=== PATIENT | male | born 1940 | race Caucasian/White ===

== ENCOUNTER → 2018-10-16 07:41 | Outpatient (CLI) | payer MEDICARE, SELFPAY ==
[2018-10-16 08:41] LABS: Add Manual Diff / Slide Review NO; Basophils Absolute Auto 0 /uL (0-100); Basophils Percent Auto 0.7 % (0-2); Eosinophils Absolute Auto 100 /uL (0-450); Eosinophils Percent Auto 2.3 % (2-4); Lymphocytes Absolute Auto 1000 /uL (1100-4500); Lymphocytes Percent Auto 16.2 % (25-40); Mean Corpuscular HGB Conc 33.3 % (30-36); Mean Corpuscular Hemoglobin 31.8 PG (26-34); Mean Corpuscular Volume 95.3 fL (80-100); Monocytes Absolute Auto 600 /uL (0-900); Monocytes Percent Auto 9.9 % (3-14); Neutrophils Absolute Auto 4200 /uL (1500-7000); Neutrophils Percent Auto 70.9 % (50-75); Platelet Count 264 X10^3/uL (150-400); Red Blood Cell Count 4.41 X10^6/uL (4.5-5.9); Red Cell Distribution Width 13.4 % (11.6-14.8); White Blood Cell Count 5.9 X10^3/uL (4.5-11.0)
[2018-10-16 09:01] LABS: Alanine Aminotransferase 18 IU/L (21-72); Albumin 3.9 g/dL (3.5-5.0); Albumin Globulin Ratio 1.2 (1.0-2.8); Alkaline Phosphatase 87 U/L (38-126); Aspartate Aminotransferase 29 IU/L (17-59); BUN Creatinine Ratio 32.5 (6-22); Bilirubin Total 0.7 mg/dL (0.2-1.3); Blood Urea Nitrogen 26 mg/dL (9-20); Calcium 9.2 mg/dL (8.4-10.2); Carbon Dioxide 29 mmol/L (22-32); Chloride 105 mmol/L (98-107); Cholesterol 112 mg/dL (140-199); Estimated Glomerular Filt Rate > 60.0 mL/min (>60); Globulin 3.3 g/dL (1.7-4.1); Glucose 133 mg/dL (80-110); HDL Cholesterol 31 mg/dL (40-60); HEMOLYSIS 32 (0-50); LDL Cholesterol Calculated 58 mg/dL (<100); Potassium 4.8 mmol/L (3.4-5.1); Sodium 143 mmol/L (137-145); Total Protein 7.2 g/dL (6.3-8.2); Triglycerides 117 mg/dL (35-150)
== END ==
PROVIDERS: Family Provider Internal Medicine Cardiovascular Disease; PCP Internal Medicine; Visit Provider Internal Medicine
DX: E78.2 Mixed hyperlipidemia (principal); I10 Essential (primary) hypertension; I25.10 Atherosclerotic heart disease of native coronary artery without angina pectoris; I48.2 Chronic atrial fibrillation; Z79.01 Long term (current) use of anticoagulants
CPT/HCPCS: 36415; 80053; 80061; 84443; 85025

== ENCOUNTER → 2019-06-09 07:54 | Outpatient (CLI) | payer MEDICARE, SELFPAY ==
[2019-06-09 11:15] LABS: Alanine Aminotransferase 23 IU/L (<50); Albumin Globulin Ratio 1.3 (1.0-2.8); Alkaline Phosphatase 94 U/L (38-126); Aspartate Aminotransferase 27 IU/L (17-59); BUN Creatinine Ratio 27.5 (6-22); Bilirubin Total 0.8 mg/dL (0.2-1.3); Blood Urea Nitrogen 22 mg/dL (9-20); Calcium 9.3 mg/dL (8.4-10.2); Carbon Dioxide 27 mmol/L (22-32); Chloride 104 mmol/L (98-107); Cholesterol 105 mg/dL (140-199); Estimated Glomerular Filt Rate > 60.0 mL/min (>60); Globulin 3.1 g/dL (1.7-4.1); Glucose 123 mg/dL (80-110); HDL Cholesterol 30 mg/dL (40-60); HEMOLYSIS < 15 (0-50); LDL Cholesterol Calculated 61 mg/dL (<100); Potassium 4.8 mmol/L (3.4-5.1); Sodium 139 mmol/L (137-145); Total Protein 7.1 g/dL (6.3-8.2); Triglycerides 72 mg/dL (35-150)
[2019-06-11 05:57] LABS: Add Manual Diff / Slide Review NO; Basophils Absolute Auto 0 /uL (0-100); Basophils Percent Auto 0.5 % (0-2); Eosinophils Absolute Auto 200 /uL (0-450); Eosinophils Percent Auto 3.1 % (2-4); Hematocrit 42.4 % (41-53); Hemoglobin 14.1 g/dL (13.5-17.5); Lymphocytes Absolute Auto 900 /uL (1100-4500); Lymphocytes Percent Auto 12.1 % (25-40); Mean Corpuscular HGB Conc 33.2 % (30-36); Mean Corpuscular Hemoglobin 32.3 PG (26-34); Mean Corpuscular Volume 97.1 fL (80-100); Monocytes Absolute Auto 600 /uL (0-900); Monocytes Percent Auto 8.1 % (3-14); Neutrophils Absolute Auto 5500 /uL (1500-7000); Neutrophils Percent Auto 76.2 % (50-75); Platelet Count 274 X10^3/uL (150-400); Red Blood Cell Count 4.37 X10^6/uL (4.5-5.9); Red Cell Distribution Width 13.6 % (11.6-14.8); White Blood Cell Count 7.2 X10^3/uL (4.5-11.0)
== END ==
PROVIDERS: Family Provider Internal Medicine Cardiovascular Disease; PCP Internal Medicine; Referring Provider Internal Medicine; Visit Provider Internal Medicine
DX: E78.2 Mixed hyperlipidemia (principal); I10 Essential (primary) hypertension; I48.20 Chronic atrial fibrillation, unspecified; Z79.01 Long term (current) use of anticoagulants
CPT/HCPCS: 36415; 80053; 80061; 85025

== ENCOUNTER → 2020-01-24 08:31 | Outpatient (CLI) | payer MEDICARE, SELFPAY ==
[2020-01-25 12:02] LABS: COVID19 Sendout Not Detected (Not Detected)
== END ==
PROVIDERS: Family Provider Internal Medicine Cardiovascular Disease; PCP Internal Medicine; Visit Provider Physician Assistant
DX: Z11.59 Encounter for screening for other viral diseases (principal)
CPT/HCPCS: 87635

== ENCOUNTER → 2020-10-08 08:29 | Outpatient (CLI) | payer MEDICARE, SELFPAY ==
[2020-10-08 09:37] LABS: Add Manual Diff / Slide Review NO; Basophils Absolute Auto 0 /uL (0-100); Basophils Percent Auto 0.6 % (0-2); Eosinophils Absolute Auto 100 /uL (0-450); Eosinophils Percent Auto 2.4 % (2-4); Hematocrit 38.8 % (41-53); Lymphocytes Absolute Auto 800 /uL (1100-4500); Lymphocytes Percent Auto 14.3 % (25-40); Mean Corpuscular HGB Conc 33.6 % (30-36); Mean Corpuscular Hemoglobin 31.9 PG (26-34); Mean Corpuscular Volume 94.9 fL (80-100); Monocytes Absolute Auto 500 /uL (0-900); Monocytes Percent Auto 9.1 % (3-14); Neutrophils Absolute Auto 4300 /uL (1500-7000); Neutrophils Percent Auto 73.6 % (50-75); Platelet Count 257 X10^3/uL (150-400); Red Blood Cell Count 4.09 X10^6/uL (4.5-5.9); Red Cell Distribution Width 14.1 % (11.6-14.8); White Blood Cell Count 5.9 X10^3/uL (4.5-11.0)
[2020-10-08 10:27] LABS: Alanine Aminotransferase 28 IU/L (<50); Albumin 3.8 g/dL (3.5-5.0); Albumin Globulin Ratio 1.2 (1.0-2.8); Alkaline Phosphatase 83 U/L (38-126); Aspartate Aminotransferase 36 IU/L (17-59); BUN Creatinine Ratio 27.1 (6-22); Bilirubin Total 0.7 mg/dL (0.2-1.3); Blood Urea Nitrogen 19 mg/dL (9-20); Calcium 9.2 mg/dL (8.4-10.2); Carbon Dioxide 28 mmol/L (22-32); Chloride 106 mmol/L (98-107); Cholesterol 98 mg/dL (140-199); Estimated Glomerular Filt Rate > 60.0 mL/min (>60); Globulin 3.1 g/dL (1.7-4.1); Glucose 110 mg/dL (80-110); HDL Cholesterol 33 mg/dL (40-60); HEMOLYSIS < 15 (0-50); LDL Cholesterol Calculated 55 mg/dL (<100); Potassium 4.4 mmol/L (3.4-5.1); Sodium 139 mmol/L (137-145); Total Protein 6.9 g/dL (6.3-8.2); Triglycerides 52 mg/dL (35-150)
== END ==
PROVIDERS: Family Provider Internal Medicine Cardiovascular Disease; PCP Internal Medicine; Referring Provider Internal Medicine; Visit Provider Internal Medicine
DX: E78.2 Mixed hyperlipidemia (principal); I10 Essential (primary) hypertension; I25.10 Atherosclerotic heart disease of native coronary artery without angina pectoris; I48.20 Chronic atrial fibrillation, unspecified; Z79.01 Long term (current) use of anticoagulants
CPT/HCPCS: 80053; 80061; 85025

== ENCOUNTER → 2021-01-14 11:40 | Outpatient (CLI) | payer MEDICARE, SELFPAY ==
[2021-01-14 13:07] LABS: COVID19 -Nasal RAPID Negative (Negative)
== END ==
PROVIDERS: Family Provider Internal Medicine Cardiovascular Disease; PCP Internal Medicine; Visit Provider Nurse Practitioner
DX: Z20.822 Contact with and (suspected) exposure to COVID-19 (principal); Z01.812 Encounter for preprocedural laboratory examination
CPT/HCPCS: 87635; C9803

== ENCOUNTER → 2021-12-29 11:04 | Outpatient (CLI) | payer MEDICARE, SELFPAY ==
[2021-12-29 12:26] LABS: Add Manual Diff / Slide Review NO; Basophils Absolute Auto 0 /uL (0-100); Basophils Percent Auto 0.8 % (0-2); Eosinophils Absolute Auto 100 /uL (0-450); Eosinophils Percent Auto 1.7 % (2-4); Hemoglobin 14.1 g/dL (13.5-17.5); Lymphocytes Absolute Auto 700 /uL (1100-4500); Lymphocytes Percent Auto 13.6 % (25-40); Mean Corpuscular HGB Conc 34.5 % (30-36); Mean Corpuscular Hemoglobin 32.9 PG (26-34); Mean Corpuscular Volume 95.3 fL (80-100); Monocytes Absolute Auto 600 /uL (0-900); Monocytes Percent Auto 10.9 % (3-14); Neutrophils Absolute Auto 3700 /uL (1500-7000); Platelet Count 281 X10^3/uL (150-400); Red Cell Distribution Width 13.2 % (11.6-14.8)
[2021-12-29 12:54] LABS: Alanine Aminotransferase 22 IU/L (<50); Albumin 4.1 g/dL (3.5-5.0); Albumin Globulin Ratio 1.3 (1.0-2.8); Alkaline Phosphatase 97 U/L (38-126); Aspartate Aminotransferase 25 IU/L (17-59); BUN Creatinine Ratio 25.6 (6-22); Bilirubin Total 1.2 mg/dL (0.2-1.3); Blood Urea Nitrogen 20 mg/dL (9-20); Calcium 9.2 mg/dL (8.4-10.2); Carbon Dioxide 30 mmol/L (22-32); Chloride 103 mmol/L (98-107); Cholesterol 107 mg/dL (140-199); Estimated Glomerular Filt Rate > 60 mL/min (>60); Globulin 3.2 g/dL (1.7-4.1); Glucose 107 mg/dL (80-110); HDL Cholesterol 38 mg/dL (40-60); HEMOLYSIS < 15 (0-50); LDL Cholesterol Calculated 61 mg/dL (<100); Potassium 5.2 mmol/L (3.4-5.1); Sodium 141 mmol/L (137-145); Total Protein 7.3 g/dL (6.3-8.2); Triglycerides 42 mg/dL (35-150)
== END ==
PROVIDERS: Family Provider Internal Medicine Cardiovascular Disease; PCP Internal Medicine; Referring Provider Internal Medicine; Visit Provider Internal Medicine
DX: I10 Essential (primary) hypertension (principal); E78.2 Mixed hyperlipidemia; I25.10 Atherosclerotic heart disease of native coronary artery without angina pectoris; I48.20 Chronic atrial fibrillation, unspecified; Z79.01 Long term (current) use of anticoagulants; Z79.899 Other long term (current) drug therapy
CPT/HCPCS: 36415; 80053; 80061; 85025

== ENCOUNTER → 2022-09-06 10:13 | Outpatient (CLI) | payer MEDICARE, SELFPAY ==
--- NOTE | 2022-09-06 | DI.CT.S_ITS ---
PROCEDURE: CT SINUS SCREEN WO CON INDICATIONS: Chronic pansinusitis TECHNIQUE: Noncontrast 3.0 mm axial images acquired from the frontal sinuses to the mid-sella, with coronal and sagittal reformats. For radiation dose reduction, the following was used: automated exposure control, adjustment of mA and/or kV according to patient size. COMPARISON: None. FINDINGS: Image quality: Excellent. Maxillary Sinuses: No bony remodeling or destruction. Sinuses are clear. Ethmoid Air Cells: No bony remodeling or destruction. Sinuses are clear. Sphenoid Sinuses: No bony remodeling or destruction. Sinuses are clear. Frontal Sinuses: No bony remodeling or destruction. Sinuses are clear. Ostiomeatal Complexes: Ostiomeatal complexes are patent. 9 mm left and 13 mm right Bianca cells. Miscellaneous: Visualized intra-orbital contents are normal. No jomar bullosa or paradoxical turbinate curvature. No nasal septal deviation. IMPRESSION: 1. Bilateral Bianca cells. 2. No significant sinus disease. Dictated by: Stanislaw Vasquez M.D. on 09/06/2022 at 13:40 Approved by: Stanislaw Vasquez M.D. on 09/06/2022 at 13:41
== END ==
PROVIDERS: Family Provider Internal Medicine Cardiovascular Disease; PCP Internal Medicine; Referring Provider Otolaryngology; Visit Provider Otolaryngology
DX: J32.4 Chronic pansinusitis (principal); R09.82 Postnasal drip
CPT/HCPCS: 70486

== ENCOUNTER → 2022-09-07 14:14 | Outpatient (CLI) | payer MEDICARE, SELFPAY ==
--- NOTE | 2022-09-07 14:16 | DI.RAD.S_ITS ---
PROCEDURE: FL BARIUM SWALLOW W SPEECH INDICATIONS: Chronic cough COMPARISON: None. TECHNIQUE: Examination was conducted in conjunction with speech pathology per standard protocol. In the lateral projection, filming was performed of the patient swallowing. AP projection filming may also be performed with patient swallowing. COMPARISON: FINDINGS: Function: The oral preparatory phase appears normal, with proper containment. The subsequent oral propulsive phase, pharyngeal phase, and esophageal phase of swallowing also appear normal with all proffered substances. A few episodes mild laryngotracheal penetration without aspiration. No pathologic vallecular pooling. Morphology: No cricopharyngeal bar is identified. No cervical esophageal webs. No Zenker's diverticulum. No strictures. IMPRESSION: A few episodes of mild laryngotracheal penetration without aspiration. Otherwise, no remarkable modified barium swallow. Please see separate report by the speech pathologist for further details. Dictated by: Andrew South M.D. on 09/07/2022 at 21:20 Approved by: Andrew South M.D. on 09/07/2022 at 21:23
--- NOTE | 2022-09-08 17:30 | ST.SWALLOW ---
Visit Care Team Role Provider Type Jim Ness MD Primary Care Provider Physician Specialty: Internal Medicine Address: [address] [place] [address], [address], [place], [address] Email: [email or web address] Ethan Mays MD Family Provider Physician Specialty: Cardiology Address: [address], [address], [place], [address] Email: [email or web address] Andrew Case MD Attending Provider Physician Referring Provider Specialty: Ear, Nose, Throat Address: [address] [place] [address], [id number] Email: [email or web address] Modified Barium Swallow Study CHIEF WRITER Modified Barium Swallow Study Start: 09/07/22 16:55 Freq: Status: Active Protocol: Document 09/07/22 16:56 LNK (Rec: 09/07/22 17:13 LNK [id number]) Modified Barium Swallow Study Total Time Visit Start Time 14:30 Visit Stop Time 15:00 Total Visit Minutes [address] Case Reason for Referral persistent cough/throat clearing Setting Setting Outpatient Care Patient Information Identification Type Name,Date of Patient History The pt was seen for a modified Barium Swallow Study secondary to reported persistent throat clearing and cough. Pt reports he has sinusitis and has a lot of drainage that builds up in his throat causing him to clear his throat/cough. Pt denied difficulty with swallowing foods or liquids when eating. Subjective Observations Pt is a pleasant appearing man who was seated in the fluoroscopy chair with directions and procedures described for him. He agreed to proceed. Patient Positioning Position View Lat-A/P Imaging Lateral View Textures Administered Trials Presented Thin Liquid via Spoon (IDDSI 0 ),Thin Liquid via Cup (IDDSI 0 ),Puree (IDDSI 4),Regular ( IDDSI 7) Barium Tablet Yes The IDDSI Framework Protocol: IDDSI.1 Oral Impairment Source: The Modified Barium Swallow Impairment Profile (MBSImP??) Lip Closure No labial escape Tongue Control During Bolus Hold Cohesive bolus between tongue to palatal seal Bolus Preparation/Mastication Timely & efficient chewing & mashing Bolus Transport/Lingual Motion Brisk tongue motion Oral Residue Trace residue lining oral structures Location Tongue Initiation of Pharyngeal Swallow Bolus head at posterior laryngeal surface of epiglottis Additional Oral Impairment Observations OME and DKS indicated structures WFL. Missing teeth, but this did not appear to interfere with mastication into smooth bolus. Pt demonstrated WNL oral phase of swallowing with trace residue along the body of his tongue. Pharyngeal Impairment Source: The Modified Barium Swallow Impairment Profile (MBSImP??) Soft Palate Elevation No bolus between soft palate & pharyngeal wall Laryngeal Elevation Part.sup.move.thyroid cart/ part.approx.arytenoids to epiglot.petiole Anterior Hyoid Excursion Partial anterior movement Epiglottic Movement Partial inversion Laryngeal Vestibular Closure Incomplete; narrow column air/ contrast in laryngeal vestibule Pharyngeal Stripping Wave Present - diminished Pharyngoesophageal Segment Opening Partial distention/partial duration; partial obstruction of flow Tongue Base Retraction Narrow column of contrast/air betwn tongue base & post. pharyngeal wall Pharyngeal Residue Collection of residue within/ on pharyngeal structures Location Diffuse (>3 areas) Additional Pharyngeal Impairment Base of tongue weakness was Observations observed to negatively hyolaryngeal elevation and movement and epiglottic inversion. There was weakness noted in the closure/seal of the laryngeal vestibule. Supra and sub epiglottic pooling of residue was observed across trials. resulting in laryngeal penetration x4 and aspiration of pooled secretions from the subepiglottic space as well as the pyriforms with subsequent swallows (Penetration Aspiration Scale 7 - below folds, visible trachea residue despite effort). Adriana aspiration of secretions observed x3. The PAS is a 1-8 scale of severity od penetration/aspiration during swallowing. Pt did not demonstrate spontaneous, reflexive cough. Cues to cough/clear throat were minimally affective. A/P View The IDDSI Framework Protocol: IDDSI.1 A/P View Observations Esophageal Clearance Upright Position Complete clearance; esophageal coating Esophageal Function WFL Additional A-P Observations Barium tablet was swallowed and passed through the esophagus in a timely manner Clinical Impressions Dysphagia Type Pharyngeal Findings Pt presented with mild pharyngeal dysphagia characterized by laryngeal penetration with aspiration. Spontaneous cough throat clear was not observed. Pt appeared to be able to swallow most of each bolus, however, there was diffuse residue within the pharyngeal cavities that, mixed with secretions, was noted to penetrate the laryngeal vestibule with adriana aspiration x3. pt reports frequent throat clearing throughout the day. pt attributed this to sinus drainage, which may be contributory. However, weakness of the pharyngeal musculature relative to swallow efficiency and safety appear to be a significant factor as well. Swallowing therapy is recommended to increase linguapharyngeal muscles. Rehabilitation Potential Excellent Patient Appropriate for Therapy Yes Recommendations Diet Liquids Order Thin (IDDSI 0) Diet Order Regular (IDDSI 7) Medication Recommendation As Tolerated Aspiration Precautions Recommended Precautions Upright at 90 Degrees, Alternate Liquids/Solids,Small Bites/Sips,Double Swallow Additional Precautions Avoid sequential swallows without stopping. Recommend one swallow at a time Treatment Plan Therapy Recommendations Outpatient Speech Therapy Therapy Strategy Recommendations Sitting Upright (90 deg), Liquids from Cup,Small Bites and Sips Short Term Goals Pt will review the findings of the MBSS with the CHIEF WRITER Pt will be provided with education and written exercises to increase linguapharyngeal muscle strength Nonprofit Director Goals Pt will safely tolerate the least restrictive diet without s/sx aspiration
--- NOTE | 2022-09-08 17:31 | ST.OPPOC ---
Physical, Occupational & Speech Therapy At [facility] Visit Care Team Role Provider Type Jim Ness MD Primary Care Provider Physician Address: [address], [address], [place], [address] Ethan Mays MD Family Provider Physician Address: [address], [address], [place], [address] Andrew Case MD Attending Provider Physician Referring Provider Address: [address] [facility] [place], [address] Speech Pathology Plan of Care Referring Provider Dr. Case Patient History The pt was seen for a modified Barium Swallow Study secondary to reported persistent throat clearing and cough. Pt reports he has sinusitis and has a lot of drainage that builds up in his throat causing him to clear his throat/cough. Pt denied difficulty with swallowing foods or liquids when eating. Mod Barium Swallow Oral Phase OME and DKS indicated structures WFL. Missing Other Observations teeth, but this did not appear to interfere with mastication into smooth bolus. Pt demonstrated WNL oral phase of swallowing with trace residue along the body of his tongue. Mod Barium Swallow Lateral Base of tongue weakness was observed to View Pharyngeal Other negatively hyolaryngeal elevation and movement Observation and epiglottic inversion. There was weakness noted in the closure/seal of the laryngeal vestibule. Supra and sub epiglottic pooling of residue was observed across trials. resulting in laryngeal penetration x4 and aspiration of pooled secretions from the subepiglottic space as well as the pyriforms with subsequent swallows (Penetration Aspiration Scale 7 - below folds, visible trachea residue despite effort). Adriana aspiration of secretions observed x3. The PAS is a 1-8 scale of severity od penetration/ aspiration during swallowing. Pt did not demonstrate spontaneous, reflexive cough. Cues to cough/clear throat were minimally affective. Mod Barium Swallow A/P View Barium tablet was swallowed and passed through Additional Observations the esophagus in a timely manner MBS Comments Pt presented with mild pharyngeal dysphagia characterized by laryngeal penetration with aspiration. Spontaneous cough throat clear was not observed. Pt appeared to be able to swallow most of each bolus, however, there was diffuse residue within the pharyngeal cavities that, mixed with secretions, was noted to penetrate the laryngeal vestibule with adriana aspiration x3. pt reports frequent throat clearing throughout the day. pt attributed this to sinus drainage, which may be contributory. However, weakness of the pharyngeal musculature relative to swallow efficiency and safety appear to be a significant factor as well. Swallowing therapy is recommended to increase linguapharyngeal muscles. Additional Precautions Avoid sequential swallows without stopping. Recommend one swallow at a time Short Term Goals Pt will review the findings of the MBSS with the SALES PLANNING MANAGER Pt will be provided with education and written exercises to increase linguapharyngeal muscle strength Comment: Electronically Signed by: JANES Cho 09/08/22 2709 If you are in agreement with this Plan of Care, please return a signed and dated copy. I have reviewed this Plan of Care and certify that the skilled therapy services above are required to meet the patient?s needs. Physician Signature Date Printed Name and Credentials Clinical Instructor Signature Printed Name and Credentials
== END ==
PROVIDERS: Family Provider Internal Medicine Cardiovascular Disease; PCP Internal Medicine; Referring Provider Otolaryngology; Visit Provider Otolaryngology
DX: R05.3 Chronic cough (principal)
CPT/HCPCS: 74230; 92611

== ENCOUNTER → 2022-12-27 08:15 | Outpatient (CLI) | payer MEDICARE, SELFPAY ==
--- NOTE | 2022-12-27 08:18 | DI.RAD.S_ITS ---
PROCEDURE: XR CHEST 2V INDICATIONS: COUGH TECHNIQUE: 2 views of the chest were acquired. COMPARISON: [facility], , CHEST 2 VIEW, 04/21/2009, 11:04. FINDINGS: Surgical changes and devices: None. Lungs and pleura: Lungs are clear. No pleural effusions or pneumothorax. Mediastinum: Mediastinal contours are normal. Heart size is normal. Bones and chest wall: No suspicious bony abnormalities. Soft tissues appear unremarkable. IMPRESSION: No acute cardiopulmonary abnormality is seen. Dictated by: Frank Regalado M.D. on 12/27/2022 at 10:40 Approved by: Frank Regalado M.D. on 12/27/2022 at 10:40
[2022-12-27 13:42] LABS: BUN Creatinine Ratio 20.5 (6-22); Blood Urea Nitrogen 17 mg/dL (9-20); Calcium 9.4 mg/dL (8.4-10.2); Carbon Dioxide 29 mmol/L (22-32); Chloride 102 mmol/L (98-107); Estimated Glomerular Filt Rate > 60 mL/min (>60); Glucose 100 mg/dL (80-110); HEMOLYSIS < 15 (0-50); Potassium 4.7 mmol/L (3.4-5.1); Sodium 138 mmol/L (137-145)
== END ==
PROVIDERS: Family Provider Internal Medicine Cardiovascular Disease; PCP Internal Medicine; Referring Provider Otolaryngology; Visit Provider Otolaryngology
DX: T17.908S Unspecified foreign body in respiratory tract, part unspecified causing other injury, sequela (principal); I48.20 Chronic atrial fibrillation, unspecified; R05.3 Chronic cough
CPT/HCPCS: 36415; 71046; 80048; 83735